=== PATIENT | male | born 1940 | race Caucasian/White ===

== ENCOUNTER 2018-05-27 14:17 | Outpatient (CLI) | payer MEDICARE ==
[2013-05-17 17:49] VITALS: BP 137/79
== END 2018-05-27 14:22 | disposition home or self-care (01) ==
LOC: LAB 14:17
PROVIDERS: ATTEND Nurse Practitioner Family
DX: E03.4 Atrophy of thyroid (acquired) (principal)
CPT/HCPCS: 36415; 84439; 84443

== ENCOUNTER 2018-06-12 15:12 | Emergency (ER) | payer MEDICARE ==
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
[2018-06-12] MEDS ORDERED: DIPH,PERTUSS(ACELL),TET VAC/PF 0.5 ML DISP.SYRIN IM ONE (17:32)
[2018-06-12 18:01] VITALS: BP 109/63
--- NOTE | 2018-06-12 18:21 | Diagnostic Imaging Report ---
JOHNNIE ROMERO [facility] [address] [facility] [address] [place], [place]. [address] Report Submission Date: Jun 12, 2018 4:43:03 PM SODA CLERK Patient Study Name: DAYTON BILL Date: Jun 12, 2018 4:14:42 PM SODA CLERK Modality Type: CT\SR Gender: M Description: CT BRAIN W/O CONTRAST : 44 Institution: [facility] Physician: JOHNNIE ROMERO Computed tomography head without contrast History: Head injury Findings: Transverse brain sections are obtained without contrast revealing moderate global brain atrophy and intact olivarez-white differentiation. There is no intracranial hemorrhage, mass effect, fluid collection, or skull fracture. Visualized sinuses and mastoid air cells are clear. Impression: Global brain atrophy. Electronically signed on Jun 12, 2018 4:43:03 PM SODA CLERK by: Lawrence QUINN
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
== END 2018-06-12 17:55 | disposition home or self-care (01) ==
LOC: ED 15:12
DX: S01.81XA Laceration without foreign body of other part of head, initial encounter (principal); W20.8XXA Other cause of strike by thrown, projected or falling object, initial encounter; Y93.89 Activity, other specified
CPT/HCPCS: 12013; 70450; 70486; 90471; 90715; 99284; 99285

== ENCOUNTER 2018-10-06 15:46 | Outpatient (CLI) | payer MEDICARE ==
[2018-10-06 16:11] LABS: MEAN CORPUSCULAR HEMOGLOBIN 28.9 pg (28.0-34.0)
[2018-10-06 16:12] LABS: BASOPHILS % 6.2 (0.0-1.5); EOSINOPHILS % 3.4 % (0.0-6.8); MONOCYTES % 4.5 % (0.0-11.0); NEUTROPHILS # 4.7 # k/uL (1.4-7.7)
== END 2018-10-06 15:48 ==
LOC: LAB 15:46
PROVIDERS: ATTEND Nurse Practitioner Family
DX: R80.9 Proteinuria, unspecified (principal); D75.1 Secondary polycythemia
CPT/HCPCS: 36415; 82575; 85025